=== PATIENT | female | born 1995 | race Caucasian/White ===

== ENCOUNTER 2017-01-27 00:53 | Emergency (ER) | payer OTHER ==
[2017-01-27 01:18] VITALS: BMI 31.4
--- NOTE | 2017-01-27 01:48 | PDOC ---
History of Present Illness - General Chief Complaint: Nausea/Vomiting Stated Complaint: FEVER,VOMITING Time Seen by Provider: 01/27/17 01:12 History Source: Patient Exam Limitations: No Limitations - History of Present Illness Travel History: No Initial Comments: 01/27/17 03:05 21-year-old female with no medical history presents to the emergency department complaining of diffuse abdominal pains, fever/chills, nausea/vomiting, anorexia , fatigue 4 days after returning home from a 20 day trip to [place]. Patient states the initial symptoms started when she was at the airport and [place] on January 23, prior to coming back home. Patient denies any headache, dizziness, lightheadedness, visual disturbance, neck pains, back pains, chest pain, shortness of breath, flank pains, urinary symptoms: Frequency/urgency/hesitancy. LMP 01/08/2017 01/27/17 07:03 Signed out to William Duffy Timing/Duration: reports: intermittent Past History - Past Medical History Allergies/Adverse Reactions: Allergies Allergy/AdvReac Type Severity Reaction Status Date / Time No Known Allergies Allergy Verified 01/27/17 01:16 Home Medications: Ambulatory Orders Ondansetron HCl [Zofran] 4 mg PO TID PRN #12 tablet 01/27/17 - Psycho/Social/Smoking Cessation Hx Suicidal Ideation: No Smoking History: Never smoked Have you smoked in the past 12 months: No Information on smoking cessation initiated: No Hx Alcohol Use: No Drug/Substance Use Hx: No Review of Systems - Review of Systems Able to Perform ROS?: Yes Comments:: 01/27/17 03:08 CONSTITUTIONAL: +fever, chills Absent: diaphoresis, generalized weakness, malaise, loss of appetite HEENT: Absent: rhinorrhea, nasal congestion, throat pain, throat swelling, difficulty swallowing, mouth swelling, ear pain, eye pain, visual Changes CARDIOVASCULAR: Absent: chest pain, loss of consciousness, palpitations, irregular heart rate, peripheral edema RESPIRATORY: Absent: cough, shortness of breath, dyspnea with exertion, orthopnea, wheezing, stridor, hemoptysis GASTROINTESTINAL: diffuse abd pain +nausea, vomiting, diarrhea, Absent: abdominal distension, constipation, melena, hematochezia GENITOURINARY: Absent: dysuria, frequency, urgency, hesitancy, hematuria, flank pain, genital pain MUSCULOSKELETAL: Absent: myalgia, arthralgia, joint swelling SKIN: Absent: rash, itching, pallor HEMATOLOGIC/IMMUNOLOGIC: Absent: easy bleeding, easy bruising, lymphadenopathy, frequent infections ENDOCRINE: Absent: unexplained weight gain, unexplained weight loss, heat intolerance, cold intolerance NEUROLOGIC: Absent: headache, focal weakness or paresthesias, dizziness, unsteady gait, seizure, mental status changes, bladder or bowel incontinence PSYCHIATRIC: Absent: anxiety, depression, suicidal or homicidal ideation, hallucinations. Is the patient limited Albanian proficient: No *Physical Exam - Vital Signs Last Vital Signs Temp Pulse Resp BP Pulse Ox 99.8 F H 92 H 20 132/74 98 01/27/17 01:16 01/27/17 01:16 01/27/17 01:16 01/27/17 01:16 01/27/17 01:16 - Physical Exam Comments: 01/27/17 03:08 GENERAL: Well developed, well nourished. Awake and alert. No acute distress. HEENT: Normocephalic, atraumatic. PERRLA, EOMI. No conjunctival pallor. Sclera are non- icteric. Moist mucous membranes. Oropharynx is clear. NECK: Supple. Full ROM. No JVD. Carotid pulses 2+ and symmetric, without bruits. No thyromegaly. No lymphadenopathy. CARDIOVASCULAR: Regular rate and rhythm. No murmurs, rubs, or gallops. Distal pulses are 2+ and symmetric. PULMONARY: No evidence of respiratory distress. Lungs clear to auscultation bilaterally. No wheezing, rales or rhonchi. ABDOMINAL: Soft. Non-tender. Non-distended. No rebound or guarding. No organomegaly. Normoactive bowel sounds. MUSCULOSKELETAL Normal range of motion at all joints. No bony deformities or tenderness. No CVA tenderness. EXTREMITIES: No cyanosis. No clubbing. No edema. No calf tenderness. SKIN: Warm and dry. Normal capillary refill. No rashes. No jaundice. NEUROLOGICAL: Alert, awake, appropriate. Cranial nerves 2-12 intact. No deficits to light touch and temperature in face, upper extremities and lower extremities. No motor deficits in the in face, upper extremities and lower extremities. Normoreflexic in the upper and lower extremities. Normal speech. Toes are down- going bilaterally. Gait is normal without ataxia. PSYCHIATRIC: Cooperative. Good eye contact. Appropriate mood and affect. ED Treatment Course - LABORATORY CBC & Chemistry Diagram: 01/27/17 02:05 01/27/17 02:05 - RADIOLOGY Radiograph Interpretation: 01/27/17 06:58 Ct abd/pelvis with po/iv contrast: poss cholecystitis can be confirmed with US Progress Note - Progress Note Progress Note: 0241hrs: Rectal temp 101.8 *DC/Admit/Observation/Transfer Diagnosis at time of Disposition: Gastroenteritis - Discharge Dispostion Disposition: HOME Condition at time of disposition: Improved - Prescriptions Prescriptions: Ondansetron HCl [Zofran] 4 mg PO TID PRN #12 tablet PRN Reason: Nausea And/Or Vomiting - Referrals Referrals: Brielle Interiano MD [Primary Care Provider] - - Patient Instructions Printed Discharge Instructions: DI for Viral Gastroenteritis -- Adult Additional Instructions: I recommend following a bland diet for the next 3 days and advance as tolerated. May give Motrin 400 mg as needed for pain or fever. Please give Zofran as needed for nausea. Please return to ED if any given time to symptoms return or worsen.
[2017-01-27] MEDS ORDERED: SODIUM CHLORIDE 1,000 ML IV STA (01:49)
--- NOTE | 2017-01-27 01:52 | PDOC ---
*Physical Exam - Vital Signs Last Vital Signs Temp Pulse Resp BP Pulse Ox 99.8 F H 92 H 20 132/74 98 01/27/17 01:16 01/27/17 01:16 01/27/17 01:16 01/27/17 01:16 01/27/17 01:16 ED Treatment Course - LABORATORY CBC & Chemistry Diagram: 01/27/17 02:05 01/27/17 02:05 Medical Decision Making - Medical Decision Making 01/27/17 01:52 Pt seen by the Advanced Practice Provider under my direct supervision Ancillary studies reviewed I agree with plan as outlined by the Advanced Practice Provider MARILY Wild 01/28/17 07:24 After reviewing the tests and questionable pericholecystic fluid, phone call was placed to the patient. She had not picked up the phone. A message was left urging her to call back given the results. *DC/Admit/Observation/Transfer Diagnosis at time of Disposition: Gastroenteritis - Discharge Dispostion Disposition: HOME Condition at time of disposition: Improved - Prescriptions Prescriptions: Ondansetron HCl [Zofran] 4 mg PO TID PRN #12 tablet PRN Reason: Nausea And/Or Vomiting - Referrals Referrals: Brielle Interiano MD [Primary Care Provider] - - Patient Instructions Printed Discharge Instructions: DI for Viral Gastroenteritis -- Adult Additional Instructions: I recommend following a bland diet for the next 3 days and advance as tolerated. May give Motrin 400 mg as needed for pain or fever. Please give Zofran as needed for nausea. Please return to ED if any given time to symptoms return or worsen.
[2017-01-27 02:21] LABS: URINE APPEARANCE CLOUDY; URINE BILIRUBIN NEGATIVE (NEGATIVE); URINE BLOOD 3+ (NEGATIVE); URINE COLOR AMBER; URINE GLUCOSE (UA) NEGATIVE (NEGATIVE); URINE KETONE 1+ (NEGATIVE); URINE LEUK ESTERASE NEGATIVE (NEGATIVE); URINE NITRITE NEGATIVE (NEGATIVE); URINE UROBILINOGEN 4.0 E.U/dl mg/dL (0.2-1.0)
[2017-01-27 02:23] LABS: MCH 30.2 pg (25.7-33.7); MCHC 34.8 g/dl (32.0-36.0); MEAN CELL VOLUME 86.6 fl (80-96); RDW 12.7 % (11.6-15.6); WHITE BLOOD COUNT 3.3 K/mm3 (4.0-10.0)
[2017-01-27 02:30] LABS: URINE PROTEIN 2+ (NEGATIVE)
[2017-01-27 02:33] LABS: URINE BACTERIA RARE /hpf (NONE SEEN); URINE HYALINE CAST 8 /lpf; URINE MUCUS MANY; URINE RBC 2249 /hpf (0-3); URINE WBC 8 /hpf (3-5)
[2017-01-27 02:47] LABS: ALBUMIN 3.9 g/dl (3.4-5.0); AMYLASE 54 U/L (25-115); ANION GAP 12 (8-16); BILIRUBIN,TOTAL 0.3 mg/dL (0.2-1.0); CALCIUM 8.2 mg/dL (8.5-10.1); CO2 28 mmol/L (21-32); CREATININE 0.9 mg/dL (0.55-1.02); GLUCOSE,RANDOM 106 mg/dL (74-106); SGOT/AST 212 U/L (15-37); SGPT/ALT 110 U/L (12-78); TOT PROT 7.7 g/dl (6.4-8.2)
[2017-01-27 02:48] LABS: ALK PHOS 81 U/L (45-117)
[2017-01-27] MEDS ORDERED: IBUPROFEN 400 MG TABLET (FP) PO ONE ×2 (02:57→03:00)
[2017-01-27] MEDS ORDERED: PHENAZOPYRIDINE HCL 100 MG TABLET (FP) PO ONE (02:59)
[2017-01-27] MEDS ORDERED: ACETAMINOPHEN 500 MG TABLET (FP) PO ONE (03:10)
[2017-01-27] MEDS ORDERED: ACETAMINOPHEN INJECTION 100 ML IVPB ONE (03:13)
[2017-01-27] MEDS ORDERED: POTASSIUM CHLORIDE TABS 20 MEQ TABLET.ER (FP) PO ONE ×2 (03:25→03:28)
[2017-01-27 03:33] LABS: PLATELET ESTIMATE SLT DECREASED (NORMAL)
[2017-01-27 03:34] LABS: PLATELET COMMENT2 NO CLOTTING DETECTED; TOTAL CELLS COUNTED 100
[2017-01-27 03:35] LABS: REACTIVE LYMPHOCYTES 2 % (0-80)
[2017-01-27 03:36] LABS: PLATELET COMMENT3 UNABLE TO ENUMERATE
[2017-01-27] MEDS ORDERED: CEFTRIAXONE 1,000 MG in DEXTROSE 5%-WATER - 50 ML IVPB ONE (06:45)
[2017-01-27] MEDS ORDERED: CEFTRIAXONE 50 ML ONE (07:07)
--- NOTE | 2017-01-27 07:23 | PDOC ---
*Physical Exam - Vital Signs Last Vital Signs Temp Pulse Resp BP Pulse Ox 98.2 F 74 16 106/59 98 01/27/17 06:23 01/27/17 06:23 01/27/17 06:23 01/27/17 06:23 01/27/17 06:23 ED Treatment Course - LABORATORY CBC & Chemistry Diagram: 01/27/17 02:05 01/27/17 02:05 - ADDITIONAL ORDERS Additional order review: Laboratory Results 01/27/17 01/27/17 02:06 02:05 Sodium 139 Potassium 3.2 L Chloride 99 Carbon Dioxide 28 Anion Gap 12 BUN 6 L Creatinine 0.9 Creat Clearance w eGFR > 60 Random Glucose 106 Calcium 8.2 L Total Bilirubin 0.3 AST 212 H ALT 110 H Alkaline Phosphatase 81 Total Protein 7.7 Albumin 3.9 Total Amylase 54 Lipase 128 Urine Color [place] Urine Appearance Cloudy Urine pH 6.0 Urine Protein 2+ H Urine Glucose (UA) Negative Urine Ketones 1+ H Urine Blood 3+ H Urine Nitrite Negative Urine Bilirubin Negative Urine Urobilinogen 4.0 e.u/dl H Ur Leukocyte Esterase Negative Urine RBC 2249 Urine WBC 8 Ur Epithelial Cells Few Urine Bacteria Rare Hyaline Casts 8 Urine Mucus Many Urine HCG, Qual Negative 01/27/17 02:05 RBC 4.43 MCV 86.6 MCHC 34.8 RDW 12.7 MPV Y Neutrophils % Y Lymphocytes % Y - Medications Given in the ED: ED Medications Discontinued Medications Generic Name Dose Route Start Last Admin Trade Name Freq PRN Reason Stop Dose Admin Acetaminophen 1,000 mg 01/27/17 03:10 01/27/17 03:23 Tylenol - PO 01/27/17 03:11 1,000 mg ONCE ONE Administration Sodium Chloride 1,000 mls @ 1,000 mls/hr 01/27/17 01:49 01/27/17 02:07 Normal Saline - IV 01/27/17 02:48 1,000 mls/hr ASDIR STA Administration Ceftriaxone Sodium 1,000 mg/ 50 mls @ 100 mls/hr 01/27/17 06:45 01/27/17 07:18 Dextrose IVPB 01/27/17 07:14 100 mls/hr ONCE ONE Administration Ibuprofen 800 mg 01/27/17 02:57 01/27/17 03:01 Motrin - PO 01/27/17 02:58 800 mg ONCE ONE Administration Phenazopyridine HCl 200 mg 01/27/17 02:59 01/27/17 03:01 Pyridium - PO 01/27/17 03:00 Not Given ONCE ONE Potassium Chloride 40 meq 01/27/17 03:25 01/27/17 03:31 K-Dur - PO 01/27/17 03:26 40 meq ONCE ONE Administration Medical Decision Making - Medical Decision Making 01/27/17 07:23 Patient received in sign out from MARILY dejesus. Patient status post return from [facility] complaining of GI complaints along with temperature. Patient had a CT that show possible cholecystitis and is pending a gallbladder ultrasound. Patient currently menstruating. Laboratory Tests 01/27/17 01/27/17 01/27/17 02:05 02:05 02:06 WBC 3.3 L Potassium 3.2 L Total Bilirubin 0.3 AST 212 H ALT 110 H Total Amylase 54 Lipase 128 Urine Ketones 1+ H Urine Blood 3+ H Ur Leukocyte Esterase Negative Urine RBC 2249 Urine WBC 8 Urine HCG, Qual Negative 01/27/17 08:47 Ultrasound shows no definite evidence of cholelithiasis. There is a small amount of pericholecystic fluid seen versus focal fatty sparing of contiguous hepatic tissue. If there is any clinical concern for possible acute cholecystitis additional evaluation utilizing MRI and MRCP versus hida scan may be performed. 01/27/17 08:48 Selected Entries 01/27/17 07:33 Temperature 98.1 F Pulse Rate [ 83 Radial] Respiratory 18 Rate Blood Pressure 130/43 [Left Arm] O2 Sat by Pulse 97 Oximetry (%) we'll discharge home with Zofran. mother has MOTRIN AT HOME FOR FEVER OR PAIN *DC/Admit/Observation/Transfer Diagnosis at time of Disposition: Gastroenteritis - Discharge Dispostion Disposition: HOME Condition at time of disposition: Improved - Referrals Referrals: Brielle Interiano MD [Primary Care Provider] - - Patient Instructions Printed Discharge Instructions: DI for Viral Gastroenteritis -- Adult Additional Instructions: I recommend following a bland diet for the next 3 days and advance as tolerated. May give Motrin 400 mg as needed for pain or fever. Please give Zofran as needed for nausea. Please return to ED if any given time to symptoms return or worsen. - Post Discharge Activity
[2017-01-27 09:37] VITALS: BP 128/50; PULSE 80; TEMP 98.2
== END 2017-01-27 09:38 | disposition home or self-care (01) ==
LOC: JER 00:53
PROC: 3E0337Z Introduction of Electrolytic and Water Balance Substance into Peripheral Vein, Percutaneous Approach (ICD-10-PCS; principal; 2017-01-27)
PROC: 3E03329 Introduction of Other Anti-infective into Peripheral Vein, Percutaneous Approach (ICD-10-PCS; 2017-01-27)
DX: K52.9 Noninfective gastroenteritis and colitis, unspecified (principal)
CPT/HCPCS: 36415; 74177-TC; 76705-TC; 80053; 81003; 81015; 82150; 83690; 84703; 85025; 87040; 96361; 96365; 99283-25